=== PATIENT | female | born 1955 | race Caucasian/White ===

== ENCOUNTER 2018-09-25 10:58 | Emergency (ER) | payer SELFPAY ==
--- NOTE | 2018-09-25 12:24 | ER ---
Nurse's Notes [facility] Name: Steffi Gonzalez Age: 63 yrs Sex: Female : 1955 Arrival Date: 09/25/2018 Time: 11:00 Bed 4 Private MD: Diagnosis: Paresthesia of skin Presentation: 09/25 11:05 Presenting complaint: Patient states: I have had numbness above my lips on both sides la1 of my face and all my toes are feet are numb but that comes and goes, sx started yesterday. Transition of care: patient was not received from another setting of care. Onset of symptoms was September 25, 2018. Risk Assessment: Do you want to hurt yourself or someone else? Patient reports no desire to harm self or others. Initial Sepsis Screen: Does the patient meet any 2 criteria? No. Patient's initial sepsis screen is negative. Does the patient have a suspected source of infection? No. Patient's initial sepsis screen is negative. Care prior to arrival: None. 11:05 Method Of Arrival: Ambulatory la1 11:05 Acuity: JEAN 3 la1 Triage Assessment: 11:10 General: Appears comfortable, Behavior is calm, cooperative. aa5 Historical: - Allergies: 11:07 PENICILLINS; la1 - Home Meds: 11:07 None [Active]; la1 - PMHx: 11:07 None; la1 - Immunization history:: Adult Immunizations up to date. - Social history:: Smoking status: Patient uses tobacco products, denies chronic smoking, but will smoke occasionally. - Ebola Screening: : No symptoms or risks identified at this time. - Family history:: not pertinent. Screenin:08 VAN Screening: Arm Drift: Patient shows no arm weakness. Patient is VAN negative. la1 11:10 Abuse screen: Denies threats or abuse. Nutritional screening: No deficits noted. aa5 Tuberculosis screening: No symptoms or risk factors identified. Fall Risk None identified. Assessment: 11:10 General: Appears comfortable, Behavior is calm, cooperative. Pain: Denies pain. Neuro: aa5 Level of Consciousness is awake, alert, obeys commands, Oriented to person, place, time, situation, Embedded Software Engineer are equal bilaterally Moves all extremities. Gait is steady, Speech is normal, Facial symmetry appears normal, Pupils are PERRLA, Reports tingling above upper lip and frank toes that began yesterday and it's intermittent. Pt denies weakness, denies numbness. . Cardiovascular: Heart tones S1 S2 present Rhythm is regular. Respiratory: Airway is patent Respiratory effort is even, unlabored, Respiratory pattern is regular, symmetrical. GI: No signs and/or symptoms were reported involving the gastrointestinal system. : No signs and/or symptoms were reported regarding the genitourinary system. EENT: No signs and/or symptoms were reported regarding the EENT system. Derm: Skin is pink, warm \T\ dry. Musculoskeletal: Range of motion: intact in all extremities. 11:50 Reassessment: Dr. Alvarez at bedside having detailed discussion with patient about aa5 need for labs and CT scan, pt refusing any labs or radiology. . 12:28 Reassessment: Patient is alert, oriented x 3, equal unlabored respirations, skin aa5 warm/dry/pink. Vital Signs: 11:07 BP 136 / 82; Pulse 102; Resp 16; Temp 98.2; Pulse Ox 96% on R/A; Weight 81.65 kg; la1 Height 5 ft. 10 in. (177.80 cm); 11:07 Body Mass Index 25.83 (81.65 kg, 177.80 cm) la1 NIH Stroke Scale Scores: 12:19 NIHSS Score: 0 bk ED Course: 11:00 Patient arrived in ED. mr 11:07 Triage completed. la1 11:08 Arm band placed on left wrist. la1 11:09 Carlos Eduardo Alvarez MD is Attending Physician. bk 11:10 Patient has correct armband on for positive identification. Placed in gown. Bed in low aa5 position. Call light in reach. Side rails up X2. 11:13 Janell Jacome, MARCELLA is Primary Nurse. aa5 12:23 Morro Spain MD is Referral Physician. bk 12:23 Gregorio Liu MD is Referral Physician. bk 12:28 No provider procedures requiring assistance completed. Patient did not have IV access aa5 during this emergency room visit. Administered Medications: No medications were administered Outcome: 12:23 Discharge ordered by . bk 12:28 Discharged to home ambulatory. aa5 12:28 Condition: stable 12:28 Discharge instructions given to patient, Instructed on discharge instructions, follow up and referral plans. Demonstrated understanding of instructions, follow-up care. 12:29 Patient left the ED. mila NIH Stroke Scale - NIH Stroke Score Date: 09/25/2018 Time: 12:19 Total Score = 0 1a. Level of Consciousness (LOC) - 0(Alert) 1b. Level of Consciousness (LOC) (Year \T\ Age) - 0(Both) 1c. LOC Commands (Open \T\ Closes Eyes/Leather Carver) - 0(Both) 2. Best Gaze (Lateral Gaze Paresis) - 0(Normal) 3. Visual Field Loss - 0(No visual loss) 4. Facial Palsy - 0(Normal) 5a. Left Arm: Motor (10-second hold) - 0(No drift) 5b. Right Arm: Motor (10-second hold) - 0(No drift) 6a. Left Leg: Motor (5-second hold - always test supine) - 0(No drift) 6b. Right Leg: Motor (5-second hold - always test supine) - 0(No drift) 7. Limb Ataxia (finger/nose \T\ heel/baker - test with eyes open) - 0(Absent) 8. Sensory Loss (pinprick arms/legs/face) - 0(Normal) 9. Best Language: Aphasia (description/naming/reading) - 0(No aphasia) 10. Dysarthria (speech clarity - read or repeat words) - 0(Normal) 11. Extinction and Inattention (visual/tactile/auditory/spatial/personal) - 0(No abnormality) Initials: bk Signatures: Carlos Eduardo Alvarez MD MD cha Rivera, Mary Janell Jacome RN RN aa5 Attema, Lee, RN RN la1 Reji Roberson RN RN
--- NOTE | 2018-09-25 12:24 | EDPHYS ---
Physician Documentation [facility] Name: Steffi Gonzalez Age: 63 yrs Sex: Female : 1955 Arrival Date: 09/25/2018 Time: 11:00 Bed 4 Private MD: ED Physician Carlos Eduardo Alvarez HPI: 09/25 12:19 This 63 yrs old Female presents to ER via Ambulatory with complaints of bk facial numbness. 12:19 upper lip numb and all toes numb. Severity of symptoms: At their worst the symptoms bk were mild in the emergency department the symptoms are unchanged. The patient has not experienced similar symptoms in the past. Historical: - Allergies: 11:07 PENICILLINS; la1 - Home Meds: 11:07 None [Active]; la1 - PMHx: 11:07 None; la1 - Immunization history:: Adult Immunizations up to date. - Social history:: Smoking status: Patient uses tobacco products, denies chronic smoking, but will smoke occasionally. - Ebola Screening: : No symptoms or risks identified at this time. - Family history:: not pertinent. ROS: 12:19 Constitutional: Negative for fever, chills, and weight loss, Eyes: Negative for injury, bk pain, redness, and discharge, ENT: Negative for injury, pain, and discharge, Neck: Negative for injury, pain, and swelling, Cardiovascular: Negative for chest pain, palpitations, and edema, Respiratory: Negative for shortness of breath, cough, wheezing, and pleuritic chest pain, Abdomen/GI: Negative for abdominal pain, nausea, vomiting, diarrhea, and constipation, Back: Negative for injury and pain, : Negative for injury, bleeding, discharge, and swelling, MS/Extremity: Negative for injury and deformity, Skin: Negative for injury, rash, and discoloration, Psych: Negative for depression, anxiety, suicide ideation, homicidal ideation, and hallucinations, Allergy/Immunology: Negative for hives, rash, and allergies, Endocrine: Negative for neck swelling, polydipsia, polyuria, polyphagia, and marked weight changes, Hematologic/Lymphatic: Negative for swollen nodes, abnormal bleeding, and unusual bruising. 12:19 Neuro: Positive for numbness, of the face, right foot and left foot. Exam: 12:19 Constitutional: This is a well developed, well nourished patient who is awake, alert, bk and in no acute distress. Head/Face: Normocephalic, atraumatic. Eyes: Pupils equal round and reactive to light, extra-ocular motions intact. Lids and lashes normal. Conjunctiva and sclera are non-icteric and not injected. Cornea within normal limits. Periorbital areas with no swelling, redness, or edema. ENT: Nares patent. No nasal discharge, no septal abnormalities noted. Tympanic membranes are normal and external auditory canals are clear. Oropharynx with no redness, swelling, or masses, exudates, or evidence of obstruction, uvula midline. Mucous membranes moist. Neck: Trachea midline, no thyromegaly or masses palpated, and no cervical lymphadenopathy. Supple, full range of motion without nuchal rigidity, or vertebral point tenderness. No Meningismus. Chest/axilla: Normal chest wall appearance and motion. Nontender with no deformity. No lesions are appreciated. Cardiovascular: Regular rate and rhythm with a normal S1 and S2. No gallops, murmurs, or rubs. Normal PMI, no JVD. No pulse deficits. Respiratory: Lungs have equal breath sounds bilaterally, clear to auscultation and percussion. No rales, rhonchi or wheezes noted. No increased work of breathing, no retractions or nasal flaring. Abdomen/GI: Soft, non-tender, with normal bowel sounds. No distension or tympany. No guarding or rebound. No evidence of tenderness throughout. Back: No spinal tenderness. No costovertebral tenderness. Full range of motion. Skin: Warm, dry with normal turgor. Normal color with no rashes, no lesions, and no evidence of cellulitis. MS/ Extremity: Pulses equal, no cyanosis. Neurovascular intact. Full, normal range of motion. Neuro: Awake and alert, GCS 15, oriented to person, place, time, and situation. Cranial nerves II-XII grossly intact. Motor strength 5/5 in all extremities. Sensory grossly intact. Cerebellar exam normal. Normal gait. Psych: Awake, alert, with orientation to person, place and time. Behavior, mood, and affect are within normal limits. Vital Signs: 11:07 BP 136 / 82; Pulse 102; Resp 16; Temp 98.2; Pulse Ox 96% on R/A; Weight 81.65 kg; la1 Height 5 ft. 10 in. (177.80 cm); 11:07 Body Mass Index 25.83 (81.65 kg, 177.80 cm) la1 NIH Stroke Scale Scores: 12:19 NIHSS Score: 0 bk MDM: 11:09 Patient medically screened. bk 12:19 Data reviewed: vital signs, nurses notes. bk Administered Medications: No medications were administered Disposition: 09/25/18 12:23 Discharged to Home. Impression: Paresthesia of skin. - Condition is Stable. - Discharge Instructions: Paresthesia, Peripheral Neuropathy, Aspirin and Your Heart, Paresthesia, [id number]. - Medication Reconciliation Form, Thank You Letter, Antibiotic Education, Prescription Opioid Use form. - Follow up: Private Physician; When: 2 - 3 days; Reason: Recheck today's complaints, Continuance of care, Re-evaluation by your physician. Follow up: Morro Spain MD; When: 2 - 3 days; Reason: Recheck today's complaints, Re-evaluation by your physician. Follow up: Gregorio Liu MD; When: 2 - 3 days; Reason: Recheck today's complaints, Re-evaluation by your physician. - Problem is new. - Symptoms have improved. NIH Stroke Scale - NIH Stroke Score Date: 09/25/2018 Time: 12:19 Total Score = 0 1a. Level of Consciousness (LOC) - 0(Alert) 1b. Level of Consciousness (LOC) (Year \T\ Age) - 0(Both) 1c. LOC Commands (Open \T\ Closes Eyes/Lav Crewman) - 0(Both) 2. Best Gaze (Lateral Gaze Paresis) - 0(Normal) 3. Visual Field Loss - 0(No visual loss) 4. Facial Palsy - 0(Normal) 5a. Left Arm: Motor (10-second hold) - 0(No drift) 5b. Right Arm: Motor (10-second hold) - 0(No drift) 6a. Left Leg: Motor (5-second hold - always test supine) - 0(No drift) 6b. Right Leg: Motor (5-second hold - always test supine) - 0(No drift) 7. Limb Ataxia (finger/nose \T\ heel/baker - test with eyes open) - 0(Absent) 8. Sensory Loss (pinprick arms/legs/face) - 0(Normal) 9. Best Language: Aphasia (description/naming/reading) - 0(No aphasia) 10. Dysarthria (speech clarity - read or repeat words) - 0(Normal) 11. Extinction and Inattention (visual/tactile/auditory/spatial/personal) - 0(No abnormality) Initials: [facility] Signatures: Carlos Eduardo Alvarez MD MD cha Attema, Lee, RN RN la1 Reji Roberson RN RN hj Corrections: (The following items were deleted from the chart) 12:23 12:23 09/25/2018 12:23 Discharged to Home. Impression: Paresthesia of skin. bk Condition is Stable. Forms are Medication Reconciliation Form, Thank You Letter, Antibiotic Education, Prescription Opioid Use. Follow up: Private Physician; When: 2 - 3 days; Reason: Recheck today's complaints, Continuance of care, Re-evaluation by your physician. Problem is new. Symptoms have improved. [facility] 12:29 12:23 09/25/2018 12:23 Discharged to Home. Impression: Paresthesia of skin. hj Condition is Stable. Forms are Medication Reconciliation Form, Thank You Letter, Antibiotic Education, Prescription Opioid Use. Follow up: Private Physician; When: 2 - 3 days; Reason: Recheck today's complaints, Continuance of care, Re-evaluation by your physician. Follow up: Morro Spain; When: 2 - 3 days; Reason: Recheck today's complaints, Re-evaluation by your physician. Follow up: Gregorio Liu; When: 2 - 3 days; Reason: Recheck today's complaints, Re-evaluation by your physician. Problem is new. Symptoms have improved. bk
== END 2018-09-25 12:29 | disposition home or self-care (01) ==
LOC: ER 10:58
DX: R20.2 Paresthesia of skin (principal); Z72.0 Tobacco use; Z88.0 Allergy status to penicillin
CPT/HCPCS: 99281